=== PATIENT | female | born 1975 | race Caucasian/White ===

== ENCOUNTER 2020-07-21 20:37 | Emergency (ER) | payer OTHER ==
[~2020-07-21] VITALS: Ht 160 cm; Wt 132.9 kg
[2020-07-21 21:03] VITALS: Ht 160 cm; Wt 132.9 kg
[2020-07-22 03:51] VITALS: BP 143/63
== END 2020-07-22 03:51 | disposition home or self-care (01) ==
LOC: ED 20:37
DX: U07.1 COVID-19 (principal); R11.2 Nausea with vomiting, unspecified; E11.9 Type 2 diabetes mellitus without complications
CPT/HCPCS: J1100; J1200; J1885; J2405; J2765; J7030